=== PATIENT | female | born 2000 | race Two or more races ===

== ENCOUNTER 2022-07-11 12:02 | Inpatient (IN) | payer OTHER ==
[~2022-07-11] VITALS: Ht 162.6 cm
[2022-07-11] MEDS ORDERED: MOTRIN IB200 M1 (12:22)
[2022-07-11] MEDS ORDERED: CIPRO500 MG PO (12:23)
== END 2022-07-13 15:42 | disposition home or self-care (01) | DRG 603 ==
LOC: ER 12:02 → EMR PED 12:08 → OB/GYN 17:53
PROVIDERS: ADMIT Pediatrics; ATTEND Pediatrics
PROC: 0J990ZZ Drainage of Buttock Subcutaneous Tissue and Fascia, Open Approach (ICD-10-PCS; principal; 2022-07-11)
DX: L05.01 Pilonidal cyst with abscess (principal); Z20.822 Contact with and (suspected) exposure to COVID-19